=== PATIENT | female | born 1950 | race Caucasian/White ===

== ENCOUNTER 2022-11-25 18:36 | Emergency (ER) | payer MEDICARE ==
[~2022-11-25] VITALS: Ht 157.5 cm; Wt 70.0 kg
[2022-11-25 18:41] VITALS: TEMP 98.2; O2SAT 96
[2022-11-25] MEDS: KETOROLAC 30MG/ML VIAL IM ONE (19:30)
[2022-11-25 20:09] LABS: CLARITY URINE CLOUDY (CLEAR); COLOR URINE YELLOW (YELLOW); GLUCOSE URINE NEGATIVE (NEGATIVE); KETONES URINE NEGATIVE (NEGATIVE); LEUKOCYTE ESTERASE URINE 1+ (NEGATIVE); NITRITE URINE NEGATIVE (NEGATIVE); OCCULT BLOOD URINE 1+ (NEGATIVE); PROTEIN URINE NEGATIVE (NEGATIVE); SPECIFIC GRAVITY URINE 1.021 (1.005-1.030)
[2022-11-25 20:31] LABS: SQUAMOUS EPITHELIAL CELL URINE 2+ /lpf (RARE/1+)
[2022-11-25 20:32] LABS: BACTERIA URINE 2+; CALCIUM OXALATE CRYSTALS URINE 1+ /lpf
[2022-11-25] MEDS ORDERED: IBUP-2029 MT (20:40)
[2022-11-25] MEDS ORDERED: KETOROLAC 30MG/ML VIAL IM NR (21:15)
[2022-11-25 21:20] VITALS: BP 138/73; PULSE 77; RESP 16
== END 2022-11-26 03:49 | disposition home or self-care (01) ==
LOC: ER 18:36
DX: G89.29 Other chronic pain (principal); M54.50 Low back pain, unspecified; F31.9 Bipolar disorder, unspecified; J44.9 Chronic obstructive pulmonary disease, unspecified; I10 Essential (primary) hypertension; I25.2 Old myocardial infarction; F20.9 Schizophrenia, unspecified; Z88.2 Allergy status to sulfonamides; Z88.8 Allergy status to other drugs, medicaments and biological substances
CPT/HCPCS: 99285; 74176; 81003; 96372; J1885